=== PATIENT | female | born 1985 | race Two or more races ===

== ENCOUNTER 2022-11-02 17:37 | Emergency (ER) | payer OTHER ==
--- NOTE | 2022-11-02 18:09 | ED Physician Documentation ---
PD HPI SKIN - Stated complaint Stated Complaint: FOREHEAD SWELLING - Chief complaint Chief Complaint: General - History obtained from History obtained from: Patient - History of Present Illness Timing - onset: Yesterday Timing - details: Abrupt onset, Still present (persistnt itching and increased swelling/weeping today. Patient concerned about continued reaction and also if d eveloping infection.) Location: Scalp (frontal area), Face Quality / character: Itchy, Burning, Swelling Improved by: No: Benadryl Review of Systems Constitutional: denies: Fever, Chills Respiratory: denies: Dyspnea, Cough, Wheezing PD PAST MEDICAL HISTORY - Past Medical History Cardiovascular: None Respiratory: None Endocrine/Autoimmune: None - Present Medications Home Medications: Ambulatory Orders Medication Instructions Recorded Confirmed Cetirizine [ZyrTEC] 10 mg PO BID #15 tablet 11/02/22 Triamcinolone 0.1% Cream [Kenalog 1 applic TOP BID #15 gm 11/02/22 0.1% Cream] dexAMETHasone [Decadron] 4 mg PO DAILY #5 tablet 11/02/22 - Allergies Allergies/Adverse Reactions: Allergies Allergy/AdvReac Type Severity Reaction Status Date / Time No Known Drug Allergies Allergy Verified 11/02/22 17:55 PD ED PE NORMAL - Vitals Vital signs reviewed: Yes - General General: Alert and oriented X 3, No acute distress, Well developed/nourished - HEENT HEENT: Other (some edema in lower forehead to left upper eyelid without the redness/warmth. APpears gravity effect from the fluid under skin higher moving to lower area.) - Neck Neck: Supple, no meningeal sign, No adenopathy - Cardiac Cardiac: RRR, No murmur - Respiratory Respiratory: Clear bilaterally - Derm Derm: Normal color, Warm and dry, Other (frontal scalp to top of foreahead with some redness of skin without warmth, and has confluent pebbly rash with slight serous weeping. No purulence. ) Results - Vitals Vitals: Vital Signs - 24 hr 11/02/22 11/02/22 17:48 18:36 Temperature 36.7 C Heart Rate 87 82 Respiratory 18 17 Rate Blood Pressure 136/102 H 136/94 H O2 Saturation 100 97 Oxygen O2 Source Room air PD Medical Decision Making - ED course Complexity details: considered differential (skin area looks like dermatitis and does not have appearanc eof also infection. ), d/w patient Departure - Departure Disposition: 01 Home, Self Care Clinical Impression: Contact dermatitis Condition: Stable Instructions: ED Dermatitis Contact Prescriptions: dexAMETHasone [Decadron] 4 mg PO DAILY #5 tablet Triamcinolone 0.1% Cream [Kenalog 0.1% Cream] 1 applic TOP BID #15 gm Cetirizine [ZyrTEC] 10 mg PO BID #15 tablet Comments: This looks to be persistent contact dermatitis with inflammation. It I do not think it looks like an infection at this point. I would treated with oral steroids for the next few days until fully resolved. You can add topical steroids as well to the most affected areas. Continue with the antihistamine as well such as cetirizine twice daily for the next several days to week till its fully better. Some of the swelling around the eyelid and lower forehead is a gravity effect of the swelling from higher just seeping down. The treatment of decreasing the dermatitis portion will be the most useful. Otherwise we will just take a day or 2 likely for the fluid in the tissue to absorb and get better. I printed out your prescriptions but you did get a first dose of the steroid this evening as well as some antihistamine. Discharge Date/Time: 11/02/22 18:37
[2022-11-02] MEDS ORDERED: CETIRIZINE 10 MG TABLET PO STA (18:24)
[2022-11-02] MEDS ORDERED: CHERRY SYRUP 10 ML UDC PO ONE (18:24)
[2022-11-02] MEDS ORDERED: DEXAMETHASONE 10 MG/ML VIAL PO STA (18:24)
[2022-11-02 18:37] VITALS: BP 136/94
== END 2022-11-02 18:37 | disposition home or self-care (01) ==
LOC: ED 17:37
DX: L25.9 Unspecified contact dermatitis, unspecified cause (principal)
CPT/HCPCS: 99282; 99283; A9270